=== PATIENT | male | born 1980 | race Caucasian/White ===

== ENCOUNTER → 2021-03-18 14:10 | Outpatient (CLI) | payer OTHER, BC, SELFPAY ==
--- NOTE | 2021-03-18 14:18 | VDLE_ITS ---
Reason For Study: RLE Contusion RIGHT GSV is normal. CFV is compressible, spontaneous, phasic, competent and demonstrates normal augmentation. FV is compressible, spontaneous, phasic, competent and demonstrates normal augmentation. POP V is compressible, spontaneous, phasic, competent and demonstrates normal augmentation. T/P Trunk is compressible. PTV is compressible. RT PerV is compressible. Procedure This is a venous duplex using B-mode, color flow and spectral Doppler. Exam performed in department. A preliminary report was called and/or faxed to [facility]. VL/Venous Duplex US, Unilateral Interpretation Summary Deep veins of the right lower extremity are patent and compressible segmentally . There is no evidence of right lower extremity deep vein thrombosis. Valvular competence lexx ears intact within the proximal deep venous system on the right . The right great saphenous vein a ppears patent and compressible segmentally. Ordering Physician: Danyel Motlye Referring Physician: Ramona Urbina Performed By: Tanya Webber RVT
== END ==
PROVIDERS: PCP Nurse Practitioner Primary Care; Referring Provider Family Medicine; Visit Provider Family Medicine
DX: S80.01XA Contusion of right knee, initial encounter (principal); S83.91XA Sprain of unspecified site of right knee, initial encounter; S81.011A Laceration without foreign body, right knee, initial encounter
CPT/HCPCS: 93971

== ENCOUNTER → 2024-06-20 | Outpatient (CLI) | payer OTHER, SELFPAY ==
--- NOTE | 2024-06-20 15:58 | CT_ITS ---
EXAM: Noncontrasted CT of the paranasal sinuses, with sagittal and coronal reconstructed images. CLINICAL HISTORY: Sinusitis. COMPARISON: None. TECHNIQUE: Noncontrasted CT of the paranasal sinuses, with sagittal and coronal reconstructed images. FINDINGS: The paranasal sinuses appear clear throughout. Bilateral ostia are patent. No acute osseous process is seen. Bilateral mastoid air cells appear clear. No orbital pathology is noted. CT/Sinus/Facial Bone IMPRESSION: Negative examination. Reading Location: [id number]
== END | disposition home or self-care (01) ==
LOC: CT 15:55
PROVIDERS: PCP Nurse Practitioner Primary Care; Referring Provider Otolaryngology; Visit Provider Otolaryngology
DX: J32.8 Other chronic sinusitis (principal)
CPT/HCPCS: 70486